=== PATIENT | female | born 1950 | race Asian ===

== ENCOUNTER → 2016-12-06 | Outpatient (CLI) | payer MEDICARE | END | disposition home or self-care (01) | LOC: CFH 16:08 | PROVIDERS: ATTEND Family Medicine | DX: M25.441 Effusion, right hand (principal) ==

== ENCOUNTER → 2017-02-28 | Outpatient (CLI) | payer MEDICARE | END | disposition home or self-care (01) | LOC: CFH 10:18 | PROVIDERS: ATTEND Family Medicine | DX: Z12.31 Encounter for screening mammogram for malignant neoplasm of breast (principal) | CPT/HCPCS: 77063; G0202 ==

== ENCOUNTER → 2020-01-24 | Outpatient (CLI) | payer MEDICARE | END | disposition home or self-care (01) | LOC: CFH 09:12 | PROVIDERS: ATTEND Family Medicine | DX: Z12.31 Encounter for screening mammogram for malignant neoplasm of breast (principal); M81.0 Age-related osteoporosis without current pathological fracture | CPT/HCPCS: 76641; 77063; 77067; 77080 ==

== ENCOUNTER → 2020-05-27 | Outpatient (CLI) | payer MEDICARE | END | disposition home or self-care (01) | LOC: RAD 12:24 | PROVIDERS: ATTEND Otolaryngology | DX: R13.11 Dysphagia, oral phase (principal); R68.2 Dry mouth, unspecified | CPT/HCPCS: 74220 ==